=== PATIENT | male | born 1970 | race Caucasian/White ===

== ENCOUNTER 2024-07-01 11:28 | Emergency (ER) | payer MEDICAID ==
[~2024-07-01] VITALS: Ht 180.3 cm; Wt 77.0 kg
[~2024-07-01 11:28] MED LIST: ACET-1008 PO; LOPE2TAB25 PO; MULT-25 PO; NAPR-56 PO; NORT25CA PO; TOPI25TA15 PO; folic acid tablet PO; thiamine tablet PO
[2024-07-01 15:58] VITALS: BP 138/78; PULSE 67; RESP 16; TEMP 98.1; O2SAT 97
== END 2024-07-01 15:59 | disposition home or self-care (01) ==
LOC: ER 11:28
DX: F10.10 Alcohol abuse, uncomplicated (principal); F32.A Depression, unspecified; Z79.899 Other long term (current) drug therapy; Y90.9 Presence of alcohol in blood, level not specified
CPT/HCPCS: 99281